=== PATIENT | female | born 1940 | race African-American/Black ===

== ENCOUNTER 2018-01-25 09:14 | Inpatient (IN) | payer OTHER, MEDICAID ==
[~2018-01-25] VITALS: Ht 162.6 cm; Wt 95.2 kg
[~2018-01-25 09:14] MED LIST: ACETTAB85 PO; ALBU18 IN; ALL100T PO; DOCU150L3 PO; FURO20TA3 PO; GLIP-115 PO; LABE100T PO; POTA8TAB2 PO; QUE100T PO; WARF2TAB55 PO; WARF5TAB71 PO
[2018-01-25] MEDS ORDERED: DEXTROSE 50% SYRINGE 50 ML IV ONE (09:26)
[2018-01-25] MEDS ORDERED: SODIUM CHLORIDE 0.9% 1,000 ML IV ONE ×2 (09:32)
[2018-01-25] MEDS ORDERED: DEXTROSE (50%) 50ML SYRG IV ONE (09:45)
[2018-01-25 10:19] LABS: Basophils # (auto) 0 uL; Basophils % (auto) 0.2 % (0.0-2.0); Eosinophils # (auto) 0 uL; Eosinophils % (auto) 0.1 % (0.0-7.0); Hematocrit 50.8 % (36.0-46.0); Hemoglobin 16.1 g/dL (12.2-16.2); Lymphocytes # (auto) 0.9 uL; Lymphocytes % (auto) 14.5 % (10.0-50.0); Mean Corpuscular Hgb Conc. 31.8 g/dL (32.0-36.0); Mean Corpuscular Volume 97.7 fL (80.0-100.0); Monocytes # (auto) 0.2 uL; Monocytes % (auto) 2.9 % (0.0-12.0); Neutrophils # (auto) 5.3 uL; Neutrophils % (auto) 82.3 % (37.0-80.0); Platelet Count (auto) 144 10^3/uL (140-450); White Blood Cell 6.4 10^3/uL (4.4-10.8)
[2018-01-25] MEDS ORDERED: DEXTROSE 10% 1,000 ML IV ONE ×2 (10:30→12:15)
[2018-01-25 10:42] LABS: INR 2.4 (0.9-1.15); Partial Thromboplastin Time 37.7 sec (22.64-33.71); Prothrombin Time 26.4 sec (9.37-12.3)
[2018-01-25 10:52] LABS: BUN/Creatinine Ratio 13.3; Bilirubin, Total 1.8 mg/dL (0.2-1.0); Calcium 10.4 mg/dL (8.5-10.1); Potassium 4.5 mmol/L (3.5-5.1); Total Protein 6.7 g/dL (6.4-8.2)
[2018-01-25 10:53] LABS: Albumin 3.5 g/dL (3.4-5.0)
[2018-01-25] MEDS: hydrALAZINE HCL 10 MG TAB PO SCH ×2 (12:00→18:26)
[2018-01-25] MEDS ORDERED: DEXTROSE (50%) 50ML SYRG IV PRN (12:00)
[2018-01-25] MEDS ORDERED: cefTRIAXone 1GM/10ml IVPUSH 10 ML IV ONE (12:00)
[2018-01-25] MEDS ORDERED: cloNIDine HCL 0.1 MG TAB PO PRN (12:00)
[2018-01-25] MEDS ORDERED: FUROSEMIDE 20 MG TAB PO ONE (12:15)
[2018-01-25] MEDS ORDERED: ACETAMINOPHEN/CODEINE#3 (300/30mg) TAB PO PRN (12:15)
[2018-01-25] MEDS ORDERED: DOCUSATE SOD 100 MG CAP PO PRN (12:15)
[2018-01-25] MEDS ORDERED: NITROGLYCERIN 0.4 MG SL TAB SL PRN (12:15)
[2018-01-25] MEDS ORDERED: HCTZ 25 MG TAB PO ONE (12:15)
[2018-01-25] MEDS ORDERED: TEMAZEPAM 15 MG CAP PO PRN (12:15)
[2018-01-25] MEDS ORDERED: METOPROLOL TARTRATE 25 MG TAB PO ONE (12:15)
[2018-01-25] MEDS ORDERED: MORPHINE SULFATE 8mg/ml INJ SDV IV PRN ×2 (12:15)
[2018-01-25] MEDS ORDERED: POTASSIUM CHLORIDE 8 MEQ TAB PO ONE (12:15)
[2018-01-25] MEDS ORDERED: ONDANSETRON HCL 4 MG/2 ML VIAL IV PRN (12:15)
[2018-01-25] MEDS ORDERED: ACETAMINOPHEN 325 MG TAB PO PRN (12:15)
[2018-01-25] MEDS ORDERED: HYDROcodone-ACET 5/325MG TAB PO PRN (12:15)
[2018-01-25] MEDS: FAMOTIDINE 20 MG TAB PO SCH (12:45)
[2018-01-25 13:14] LABS: Urine Bacteria NONE SEEN /hpf (None Seen); Urine Blood Negative /uL (Negative); Urine Hyaline Cast FEW /lpf (0 - 2); Urine Mucus FEW (None Seen); Urine Specific Gravity 1.021 (1.001-1.035); Urine WBC 1 /hpf (0 - 5)
[2018-01-25 13:50] VITALS: BP 153/117
[2018-01-25] MEDS: IPRATROPIUM BROM 0.5 MG/2.5ML INH SOL NEB SCH ×2 (14:44→21:26)
[2018-01-25] MEDS: ALBUTEROL SULF 2.5 MG/0.5ML(0.5%) NEB SOLN NEB SCH ×2 (14:44→21:26)
[2018-01-25 16:26] LABS: Folate (Folic Acid) > 24.00 ng/mL (5.38-24)
[2018-01-25] MEDS: ACCU-CHEK COMFORT CURVE STRIP VI SCH ×2 (17:00→21:47)
[2018-01-25] MEDS ORDERED: WARFARIN SODIUM 1 MG TAB PO ONE (17:00)
[2018-01-25] MEDS: InsuLIN REG 1unit/0.01ml Soln (100units/ml) SC SCH ×2 (17:00→21:48)
[2018-01-25] MEDS: METOPROLOL TARTRATE 25 MG TAB PO SCH (21:51)
[2018-01-25] MEDS: QUEtiapine FUMARATE 25 MG TAB PO SCH (21:52)
[2018-01-25] MEDS: PRAVASTATIN SODIUM 20 MG TAB PO SCH (21:52)
[2018-01-25] MEDS ORDERED: FAMOTIDINE 20 MG TAB PO SCH (22:00)
[2018-01-26] MEDS: hydrALAZINE HCL 10 MG TAB PO SCH ×4 (01:26→18:22)
[2018-01-26] MEDS: ALBUTEROL SULF 2.5 MG/0.5ML(0.5%) NEB SOLN NEB SCH ×3 (06:39→23:09)
[2018-01-26] MEDS: IPRATROPIUM BROM 0.5 MG/2.5ML INH SOL NEB SCH ×3 (06:39→23:09)
[2018-01-26] MEDS: ACCU-CHEK COMFORT CURVE STRIP VI SCH ×4 (08:02→22:06)
[2018-01-26 08:17] LABS: Basophils # (auto) 0 uL; Basophils % (auto) 0.6 % (0.0-2.0); Eosinophils # (auto) 0 uL; Eosinophils % (auto) 0.6 % (0.0-7.0); Hematocrit 47.4 % (36.0-46.0); Hemoglobin 15.4 g/dL (12.2-16.2); Lymphocytes # (auto) 1.2 uL; Lymphocytes % (auto) 15.8 % (10.0-50.0); Mean Corpuscular Hemoglobin 31.4 pg (28.0-32.0); Mean Corpuscular Hgb Conc. 32.5 g/dL (32.0-36.0); Mean Corpuscular Volume 96.7 fL (80.0-100.0); Monocytes # (auto) 0.7 uL; Monocytes % (auto) 9.3 % (0.0-12.0); Neutrophils # (auto) 5.7 uL; Neutrophils % (auto) 73.7 % (37.0-80.0); Nucleated Red Blood Cells % 0.2 %; Platelet Count (auto) 132 10^3/uL (140-450); Red Cell Distribution Width 19.1 % (11.8-14.3); White Blood Cell 7.7 10^3/uL (4.4-10.8)
[2018-01-26] MEDS: InsuLIN REG 1unit/0.01ml Soln (100units/ml) SC SCH ×4 (08:29→22:00)
[2018-01-26 08:31] LABS: Albumin 2.8 g/dL (3.4-5.0); Bilirubin, Total 1.2 mg/dL (0.2-1.0); Calcium 9.3 mg/dL (8.5-10.1); Total Protein 5.7 g/dL (6.4-8.2)
[2018-01-26 08:38] LABS: INR 2.36 (0.9-1.15); Partial Thromboplastin Time 36.6 sec (22.64-33.71); Prothrombin Time 25.9 sec (9.37-12.3)
[2018-01-26] MEDS: cefTRIAXone 1GM/10ml IVPUSH 10 ML IV SCH (09:11)
[2018-01-26 10:00] VITALS: BP 106/76
[2018-01-26] MEDS ORDERED: FUROSEMIDE 20 MG TAB PO SCH (10:00)
[2018-01-26] MEDS: METOPROLOL TARTRATE 25 MG TAB PO SCH ×2 (10:00→22:18)
[2018-01-26] MEDS ORDERED: POTASSIUM CHLORIDE 8 MEQ TAB PO SCH (10:00)
[2018-01-26] MEDS ORDERED: HCTZ 25 MG TAB PO SCH (10:00)
[2018-01-26] MEDS: MULTIPLE VITAMIN TAB PO SCH (10:19)
[2018-01-26] MEDS: FAMOTIDINE 20 MG TAB PO SCH (10:20)
[2018-01-26] MEDS ORDERED: WARFARIN SODIUM 5 MG TAB PO ONE (17:00)
[2018-01-26] MEDS: QUEtiapine FUMARATE 25 MG TAB PO SCH (22:18)
[2018-01-26] MEDS: PRAVASTATIN SODIUM 20 MG TAB PO SCH (22:18)
[2018-01-27 05:20] LABS: Basophils # (auto) 0 uL; Basophils % (auto) 0.6 % (0.0-2.0); Eosinophils # (auto) 0.1 uL; Eosinophils % (auto) 1.2 % (0.0-7.0); Hematocrit 45.3 % (36.0-46.0); Hemoglobin 14.5 g/dL (12.2-16.2); Lymphocytes # (auto) 0.9 uL; Lymphocytes % (auto) 14.9 % (10.0-50.0); Mean Corpuscular Hemoglobin 31.2 pg (28.0-32.0); Mean Corpuscular Volume 97.7 fL (80.0-100.0); Monocytes # (auto) 0.5 uL; Monocytes % (auto) 8.3 % (0.0-12.0); Neutrophils # (auto) 4.7 uL; Nucleated Red Blood Cells % 0.2 %; Platelet Count (auto) 121 10^3/uL (140-450); Red Blood Cells 4.64 10^6/uL (4.0-5.20); Red Cell Distribution Width 19.7 % (11.8-14.3); White Blood Cell 6.3 10^3/uL (4.4-10.8)
[2018-01-27 05:31] LABS: INR 1.79 (0.9-1.15); Prothrombin Time 19.6 sec (9.37-12.3)
[2018-01-27 05:53] LABS: Albumin 2.2 g/dL (3.4-5.0); BUN/Creatinine Ratio 16.5; Bilirubin, Total 0.9 mg/dL (0.2-1.0); Calcium 8.7 mg/dL (8.5-10.1); Potassium 4.4 mmol/L (3.5-5.1); Total Protein 4.7 g/dL (6.4-8.2)
[2018-01-27] MEDS: hydrALAZINE HCL 10 MG TAB PO SCH ×2 (06:00)
[2018-01-27] MEDS: IPRATROPIUM BROM 0.5 MG/2.5ML INH SOL NEB SCH ×2 (06:15→14:22)
[2018-01-27] MEDS: ALBUTEROL SULF 2.5 MG/0.5ML(0.5%) NEB SOLN NEB SCH ×2 (06:15→14:22)
[2018-01-27] MEDS: InsuLIN REG 1unit/0.01ml Soln (100units/ml) SC SCH ×3 (07:32→17:00)
[2018-01-27] MEDS: ACCU-CHEK COMFORT CURVE STRIP VI SCH ×3 (07:32→17:23)
[2018-01-27] MEDS ORDERED: MAGNESIUM SULFATE 1GM/100ML 100 ML IV PRN (07:45)
[2018-01-27] MEDS ORDERED: SODIUM CHLORIDE 0.9% 1,000 ML IV SCH (07:45)
[2018-01-27] MEDS: FAMOTIDINE 20 MG TAB PO SCH (09:06)
[2018-01-27] MEDS: MULTIPLE VITAMIN TAB PO SCH (09:06)
[2018-01-27] MEDS: cefTRIAXone 1GM/10ml IVPUSH 10 ML IV SCH (09:06)
[2018-01-27] MEDS ORDERED: AZITHROMYCIN 500MG/ 250ML 200 ML IV SCH (10:00)
[2018-01-27] MEDS ORDERED: SODIUM CHLORIDE 0.9% 500 ML IV ONE (10:15)
[2018-01-27] MEDS ORDERED: PROMETHAZINE HCL 25 MG/ML 1ML ONE (10:35)
[2018-01-27] MEDS ORDERED: PROMETHAZINE HCL 25 MG/ML 1ML IV PRN (10:45)
[2018-01-27] MEDS ORDERED: PROMETHAZINE HCL 25 MG/ML 1ML IV ONE (11:30)
[2018-01-27 16:58] VITALS: BP 119/66
[2018-01-27] MEDS ORDERED: WARFARIN SODIUM 5 MG TAB PO ONE (17:00)
== END 2018-01-27 19:36 | disposition short-term general hospital (02) | DRG 637 ==
LOC: ER 09:14 → EDBD 09:14 → TELE 09:15 → DOU IN ICU 01-27 17:15
PROVIDERS: ADMIT Internal Medicine; ATTEND Family Medicine
DX: E11.649 Type 2 diabetes mellitus with hypoglycemia without coma (principal); I50.43 Acute on chronic combined systolic (congestive) and diastolic (congestive) heart failure; N18.4 Chronic kidney disease, stage 4 (severe); G93.89 Other specified disorders of brain; E83.52 Hypercalcemia; I27.21 Secondary pulmonary arterial hypertension; J44.0 Chronic obstructive pulmonary disease with (acute) lower respiratory infection; I13.0 Hypertensive heart and chronic kidney disease with heart failure and stage 1 through stage 4 chronic kidney disease, or unspecified chronic kidney disease; I50.42 Chronic combined systolic (congestive) and diastolic (congestive) heart failure; E11.21 Type 2 diabetes mellitus with diabetic nephropathy; G30.9 Alzheimer's disease, unspecified; F01.50 Vascular dementia, unspecified severity, without behavioral disturbance, psychotic disturbance, mood disturbance, and anxiety; E11.22 Type 2 diabetes mellitus with diabetic chronic kidney disease; E78.5 Hyperlipidemia, unspecified; F02.80 Dementia in other diseases classified elsewhere, unspecified severity, without behavioral disturbance, psychotic disturbance, mood disturbance, and anxiety; F17.210 Nicotine dependence, cigarettes, uncomplicated; I67.2 Cerebral atherosclerosis; M10.9 Gout, unspecified; M19.90 Unspecified osteoarthritis, unspecified site; R29.6 Repeated falls; S09.90XA Unspecified injury of head, initial encounter; T45.515A Adverse effect of anticoagulants, initial encounter; X58.XXXA Exposure to other specified factors, initial encounter; Z82.3 Family history of stroke; Z82.49 Family history of ischemic heart disease and other diseases of the circulatory system; Z83.3 Family history of diabetes mellitus; Z86.73 Personal history of transient ischemic attack (TIA), and cerebral infarction without residual deficits; Z88.6 Allergy status to analgesic agent; Z79.899 Other long term (current) drug therapy; Z79.01 Long term (current) use of anticoagulants
CPT/HCPCS: 36415; 51702; 70450; 70486; 71045; 80053; 81001; 82607; 82746; 82962; 83036; 83605; 83735; 83880; 84443; 84484; 85025; 85610; 85730; 87040; 87081; 87086; 93886; 94640; 95819; 96374; 96375; 96376; J1815; J2405

== ENCOUNTER 2018-06-02 15:14 | Inpatient (IN) | payer OTHER, MEDICAID ==
[~2018-06-02] VITALS: Ht 162.6 cm; Wt 80.6 kg
[2018-06-02 16:48] LABS: Basophils # (auto) 0.1 uL; Basophils % (auto) 1.5 % (0.0-2.0); Eosinophils # (auto) 0 uL; Eosinophils % (auto) 0.6 % (0.0-7.0); Hematocrit 39.6 % (36.0-46.0); Hemoglobin 13.3 g/dL (12.2-16.2); Lymphocytes % (auto) 15.4 % (10.0-50.0); Mean Corpuscular Hemoglobin 31.8 pg (28.0-32.0); Mean Corpuscular Hgb Conc. 33.6 g/dL (32.0-36.0); Mean Corpuscular Volume 94.6 fL (80.0-100.0); Monocytes # (auto) 0.5 uL; Monocytes % (auto) 8.1 % (0.0-12.0); Neutrophils % (auto) 74.4 % (37.0-80.0); Nucleated Red Blood Cells % 0.2 %; Platelet Count (auto) 173 10^3/uL (140-450); Red Blood Cells 4.19 10^6/uL (4.0-5.20); Red Cell Distribution Width 15.2 % (11.8-14.3); White Blood Cell 6.8 10^3/uL (4.4-10.8)
[2018-06-02 17:03] LABS: Albumin 3.2 g/dL (3.4-5.0); Potassium 4.7 mmol/L (3.5-5.1)
[2018-06-02 17:06] LABS: BUN/Creatinine Ratio 14.6
[2018-06-02 17:17] LABS: Bilirubin, Total 1.4 mg/dL (0.2-1.0); Calcium 9.7 mg/dL (8.5-10.1); Total Protein 6.6 g/dL (6.4-8.2)
[2018-06-02] MEDS ORDERED: ALBUTEROL SULF 2.5 MG/0.5ML(0.5%) NEB SOLN NEB ONE (17:30)
[2018-06-02] MEDS ORDERED: cefTRIAXone 1GM/10ml IVPUSH 10 ML IV ONE (17:30)
[2018-06-02] MEDS ORDERED: IPRATROPIUM BROM 0.5 MG/2.5ML INH SOL NEB ONE (17:30)
[2018-06-02] MEDS ORDERED: FUROSEMIDE 20 MG/2 ML VIAL IV ONE (18:15)
[2018-06-02 19:21] LABS: Urine Bacteria NONE SEEN /hpf (None Seen); Urine Blood Negative /uL (Negative); Urine Mucus FEW (None Seen); Urine Specific Gravity 1.023 (1.001-1.035); Urine WBC 1 /hpf (0 - 5)
[2018-06-02] MEDS ORDERED: LORazepam 0.5 MG TAB PO PRN (20:15)
[2018-06-02] MEDS ORDERED: DEXTROSE (50%) 50ML SYRG IV PRN (20:15)
[2018-06-02] MEDS ORDERED: NITROGLYCERIN 0.4 MG SL TAB SL PRN ×2 (20:15)
[2018-06-02] MEDS ORDERED: PROMETHAZINE HCL 25 MG/ML 1ML IV PRN (20:15)
[2018-06-02] MEDS ORDERED: ACETAMINOPHEN 500 MG TAB PO PRN (20:15)
[2018-06-02] MEDS ORDERED: MORPHINE SULF INJ 2 MG/ML SYRINGE 1ML IV PRN ×3 (20:15)
[2018-06-02] MEDS ORDERED: LACTULOSE 20Gm/30ML SOLN PO PRN (20:15)
[2018-06-02] MEDS ORDERED: TEMAZEPAM 15 MG CAP PO PRN (20:15)
[2018-06-02] MEDS ORDERED: HYDROcodone-ACET 5/325MG TAB PO PRN (20:15)
[2018-06-02] MEDS: SODIUM CHLOR 0.9% PF (SALINE LOCK) 10ML VIAL/SYR IV SCH (20:40)
[2018-06-02 20:58] LABS: INR 1.01 (0.9-1.15); Partial Thromboplastin Time 28.1 sec (23.78-33.04); Prothrombin Time 10.8 sec (9.27-12.13)
[2018-06-02 21:22] VITALS: BP 159/106
[2018-06-02] MEDS: LABETALOL HCL 200 MG TAB PO SCH (21:24)
[2018-06-02 22:00] VITALS: BP 154/94
[2018-06-02] MEDS ORDERED: WARFARIN SODIUM 5 MG TAB PO ONE (22:00)
[2018-06-02] MEDS: InsuLIN REG 1unit/0.01ml Soln (100units/ml) SC SCH (22:00)
[2018-06-02 22:08] VITALS: BP 154/94
[2018-06-02] MEDS: ACCU-CHEK COMFORT CURVE STRIP VI SCH (22:22)
[2018-06-02] MEDS: ALBUTEROL SULF 2.5 MG/0.5ML(0.5%) NEB SOLN NEB PRN (22:40)
[2018-06-02] MEDS ORDERED: METO25TA5 PO (22:50)
[2018-06-02] MEDS ORDERED: PRAV20TA3 PO (22:50)
[2018-06-03] VITALS (7 sets, daily range): BP systolic 155–165; BP diastolic 83–121
[2018-06-03] MEDS: ALBUTEROL SULF 2.5 MG/0.5ML(0.5%) NEB SOLN NEB SCH ×3 (00:36→13:24)
[2018-06-03] MEDS: IPRATROPIUM BROM 0.5 MG/2.5ML INH SOL NEB SCH ×3 (00:37→13:24)
[2018-06-03] MEDS: glipiZIDE 5 MG TAB PO SCH ×2 (06:13→17:00)
[2018-06-03] MEDS: SODIUM CHLOR 0.9% PF (SALINE LOCK) 10ML VIAL/SYR IV SCH ×2 (06:13→14:00)
[2018-06-03] MEDS: InsuLIN REG 1unit/0.01ml Soln (100units/ml) SC SCH ×3 (06:13→17:00)
[2018-06-03] MEDS: ACCU-CHEK COMFORT CURVE STRIP VI SCH ×3 (06:14→17:00)
[2018-06-03 07:06] LABS: Basophils # (auto) 0.1 uL; Basophils % (auto) 0.9 % (0.0-2.0); Eosinophils # (auto) 0 uL; Eosinophils % (auto) 0.4 % (0.0-7.0); Hematocrit 42.2 % (36.0-46.0); Hemoglobin 13.7 g/dL (12.2-16.2); Lymphocytes # (auto) 1.4 uL; Lymphocytes % (auto) 18.8 % (10.0-50.0); Mean Corpuscular Hemoglobin 31.2 pg (28.0-32.0); Mean Corpuscular Hgb Conc. 32.5 g/dL (32.0-36.0); Mean Corpuscular Volume 96.1 fL (80.0-100.0); Monocytes # (auto) 0.6 uL; Monocytes % (auto) 8.4 % (0.0-12.0); Neutrophils # (auto) 5.2 uL; Neutrophils % (auto) 71.5 % (37.0-80.0); Nucleated Red Blood Cells % 0.1 %; Platelet Count (auto) 150 10^3/uL (140-450); Red Blood Cells 4.39 10^6/uL (4.0-5.20); White Blood Cell 7.3 10^3/uL (4.4-10.8)
[2018-06-03 07:43] LABS: Albumin 3.3 g/dL (3.4-5.0); BUN/Creatinine Ratio 13.6; Bilirubin, Total 1.2 mg/dL (0.2-1.0); Calcium 9.6 mg/dL (8.5-10.1); Potassium 4.2 mmol/L (3.5-5.1); Total Protein 6.7 g/dL (6.4-8.2)
[2018-06-03 08:31] LABS: INR 1.08 (0.9-1.15); Partial Thromboplastin Time 28.9 sec (23.78-33.04); Prothrombin Time 11.5 sec (9.27-12.13)
[2018-06-03] MEDS ORDERED: cefTRIAXone 1GM/10ml IVPUSH 10 ML IV SCH (09:00)
[2018-06-03] MEDS: LABETALOL HCL 200 MG TAB PO SCH (09:35)
[2018-06-03] MEDS ORDERED: POTASSIUM CHL 20 Meq TABLET PO SCH (10:00)
[2018-06-03] MEDS ORDERED: AZITHROMYCIN 500MG/ 250ML 250 ML IV SCH (10:00)
[2018-06-03] MEDS ORDERED: ENALAPRIL MALEATE 2.5 MG TAB PO SCH (10:00)
[2018-06-03] MEDS ORDERED: FUROSEMIDE 40 MG/4 ML VIAL IV SCH (10:00)
[2018-06-03] MEDS ORDERED: NITROGLYCERIN 0.2MG/HR TOPICAL PATCH TD SCH (10:00)
[2018-06-03] MEDS ORDERED: WARFARIN SODIUM 5 MG TAB PO SCH (10:00)
[2018-06-03] MEDS ORDERED: ALLOPURINOL 100 MG TAB PO SCH (10:00)
[2018-06-03] MEDS: ALBUTEROL SULF 2.5 MG/0.5ML(0.5%) NEB SOLN NEB PRN (10:47)
[2018-06-03] MEDS ORDERED: WARFARIN SODIUM 2.5 MG TAB PO ONE (17:00)
[2018-06-03] MEDS ORDERED: QUEtiapine FUMARATE 100 MG TAB PO SCH (18:00)
== END 2018-06-03 17:20 | disposition home or self-care (01) | DRG 291 ==
LOC: EDBD 15:14 → EDUNIT# 15:14 → ER 15:19 → TELE 15:20 → TELE-EAST 21:37
PROVIDERS: ADMIT Internal Medicine; ATTEND Family Medicine
DX: I13.0 Hypertensive heart and chronic kidney disease with heart failure and stage 1 through stage 4 chronic kidney disease, or unspecified chronic kidney disease (principal); J18.9 Pneumonia, unspecified organism; I50.33 Acute on chronic diastolic (congestive) heart failure; J44.1 Chronic obstructive pulmonary disease with (acute) exacerbation; J44.0 Chronic obstructive pulmonary disease with (acute) lower respiratory infection; D64.9 Anemia, unspecified; E11.21 Type 2 diabetes mellitus with diabetic nephropathy; E11.22 Type 2 diabetes mellitus with diabetic chronic kidney disease; E66.01 Morbid (severe) obesity due to excess calories; E78.5 Hyperlipidemia, unspecified; M19.90 Unspecified osteoarthritis, unspecified site; F41.9 Anxiety disorder, unspecified; I27.20 Pulmonary hypertension, unspecified; K59.00 Constipation, unspecified; M10.9 Gout, unspecified; N18.3 Chronic kidney disease, stage 3 (moderate); Z82.3 Family history of stroke; Z82.49 Family history of ischemic heart disease and other diseases of the circulatory system; Z83.3 Family history of diabetes mellitus; Z86.73 Personal history of transient ischemic attack (TIA), and cerebral infarction without residual deficits; Z87.891 Personal history of nicotine dependence; Z99.81 Dependence on supplemental oxygen; Z84.89 Family history of other specified conditions; Z88.6 Allergy status to analgesic agent; Z79.899 Other long term (current) drug therapy; Z68.30 Body mass index [BMI] 30.0-30.9, adult
CPT/HCPCS: 36415; 71045; 80053; 80061; 81001; 82550; 82962; 83036; 83880; 84443; 84484; 85025; 85610; 85730; 87040; 93306; 94640; 96374; 96375; 96376; A6257; J0696

== ENCOUNTER 2018-07-09 12:01 | Inpatient (IN) | payer OTHER, MEDICAID ==
[~2018-07-09] VITALS: Ht 162.6 cm; Wt 92.0 kg
[~2018-07-09 12:01] MED LIST changes: -ACETTAB85 PO; -LABE100T PO; +LABE100T4 PO; +METO25TA5 PO; +PRAV20TA3 PO; -WARF2TAB55 PO
[2018-07-09] MEDS ORDERED: SODIUM CHLORIDE 0.9% 1,000 ML IVB ONE (12:17)
[2018-07-09] MEDS ORDERED: DEXTROSE (50%) 50ML SYRG IV ONE (12:30)
[2018-07-09 12:54] LABS: Basophils # (auto) 0.1 uL; Basophils % (auto) 1.1 % (0.0-2.0); Eosinophils # (auto) 0.1 uL; Eosinophils % (auto) 0.9 % (0.0-7.0); Hematocrit 40.1 % (36.0-46.0); Hemoglobin 12.8 g/dL (12.2-16.2); Lymphocytes % (auto) 15.1 % (10.0-50.0); Mean Corpuscular Hemoglobin 30.6 pg (28.0-32.0); Mean Corpuscular Hgb Conc. 31.9 g/dL (32.0-36.0); Mean Corpuscular Volume 95.9 fL (80.0-100.0); Monocytes # (auto) 0.4 uL; Monocytes % (auto) 5.8 % (0.0-12.0); Neutrophils # (auto) 5.1 uL; Neutrophils % (auto) 77.1 % (37.0-80.0); Nucleated Red Blood Cells % 0.1 %; Platelet Count (auto) 176 10^3/uL (140-450); Red Blood Cells 4.18 10^6/uL (4.0-5.20); Red Cell Distribution Width 16.4 % (11.8-14.3); White Blood Cell 6.6 10^3/uL (4.4-10.8)
[2018-07-09 13:12] LABS: INR 1.02 (0.9-1.15); Partial Thromboplastin Time 29.7 sec (23.78-33.04); Prothrombin Time 10.9 sec (9.27-12.13)
[2018-07-09 13:21] LABS: Albumin 3.5 g/dL (3.4-5.0); BUN/Creatinine Ratio 15.5; Bilirubin, Total 1.2 mg/dL (0.2-1.0); Calcium 9.6 mg/dL (8.5-10.1); Magnesium 2.4 mg/dL (1.6-2.6); Potassium 4.4 mmol/L (3.5-5.1); Total Protein 6.7 g/dL (6.4-8.2)
[2018-07-09 14:46] LABS: Urine Bacteria NONE SEEN /hpf (None Seen); Urine Blood Negative /uL (Negative); Urine Specific Gravity 1.008 (1.001-1.035); Urine WBC <1 /hpf (0 - 5)
[2018-07-09] MEDS ORDERED: IPRATROPIUM BROM 0.5 MG/2.5ML INH SOL NEB ONE (17:30)
[2018-07-09] MEDS ORDERED: ALBUTEROL SULF 2.5 MG/0.5ML(0.5%) NEB SOLN NEB ONE (17:30)
[2018-07-09] MEDS ORDERED: FUROSEMIDE 40 MG/4 ML VIAL IV ONE (18:15)
[2018-07-09] MEDS ORDERED: POTASSIUM CHL 10 Meq TABLET PO ONE (18:15)
[2018-07-09] MEDS ORDERED: ONDANSETRON HCL 4 MG/2 ML VIAL IV PRN (18:30)
[2018-07-09] MEDS ORDERED: cloNIDine HCL 0.1 MG TAB PO PRN (18:30)
[2018-07-09] MEDS ORDERED: ACETAMINOPHEN 325 MG TAB PO PRN (18:30)
[2018-07-09] MEDS ORDERED: MORPHINE SULFATE 4 MG/ML SYR/VIAL IV PRN ×2 (18:30)
[2018-07-09] MEDS ORDERED: LORazepam 0.5 MG TAB PO PRN (18:30)
[2018-07-09] MEDS ORDERED: DEXTROSE (50%) 50ML SYRG IV PRN (18:30)
[2018-07-09] MEDS ORDERED: ALUM & MAG HYDROX-SIMETH LIQ(MAALOX) 30 ML PO ONE (18:30)
[2018-07-09] MEDS ORDERED: NITROGLYCERIN 0.4 MG SL TAB SL PRN ×2 (18:30)
[2018-07-09] MEDS ORDERED: ZOLPIDEM TARTRATE 5 MG TAB PO PRN (18:30)
[2018-07-09 19:39] VITALS: BP 159/112
[2018-07-09 20:00] VITALS: BP 165/101
[2018-07-09] MEDS: SODIUM CHLOR 0.9% PF (SALINE LOCK) 10ML VIAL/SYR IV SCH (21:57)
[2018-07-09 22:00] VITALS: BP 165/101
[2018-07-09] MEDS: InsuLIN REG 1unit/0.01ml Soln (100units/ml) SC SCH (22:00)
[2018-07-09] MEDS ORDERED: PRAVASTATIN SODIUM 20 MG TAB PO SCH (22:00)
[2018-07-09] MEDS ORDERED: QUEtiapine FUMARATE 100 MG TAB PO SCH (22:00)
[2018-07-09] MEDS: LABETALOL HCL 200 MG TAB PO SCH (22:02)
[2018-07-09] MEDS: ENALAPRIL MALEATE 2.5 MG TAB PO SCH (22:03)
[2018-07-09] MEDS: ACCU-CHEK COMFORT CURVE STRIP VI SCH (22:04)
[2018-07-09] MEDS: ALBUTEROL SULF 2.5 MG/0.5ML(0.5%) NEB SOLN NEB SCH (23:24)
[2018-07-09] MEDS: IPRATROPIUM BROM 0.5 MG/2.5ML INH SOL NEB SCH (23:24)
[2018-07-10] MEDS ORDERED: GLIP10TA59 PO (03:57)
[2018-07-10] MEDS ORDERED: HYDR-4296 PO (03:59)
[2018-07-10] MEDS ORDERED: QUET200T44 PO (04:03)
[2018-07-10] MEDS ORDERED: CIPR-217 PO (04:05)
[2018-07-10 05:23] VITALS: BP 123/70
[2018-07-10] MEDS: SODIUM CHLOR 0.9% PF (SALINE LOCK) 10ML VIAL/SYR IV SCH ×2 (06:00→16:03)
[2018-07-10] MEDS ORDERED: glipiZIDE 5 MG TAB PO SCH (07:00)
[2018-07-10] MEDS: InsuLIN REG 1unit/0.01ml Soln (100units/ml) SC SCH ×3 (07:00→17:00)
[2018-07-10] MEDS: ACCU-CHEK COMFORT CURVE STRIP VI SCH ×3 (07:08→17:46)
[2018-07-10] MEDS: IPRATROPIUM BROM 0.5 MG/2.5ML INH SOL NEB SCH ×3 (07:15→18:46)
[2018-07-10] MEDS: ALBUTEROL SULF 2.5 MG/0.5ML(0.5%) NEB SOLN NEB SCH ×3 (07:15→18:45)
[2018-07-10 09:00] VITALS: BP 118/79
[2018-07-10] MEDS: LABETALOL HCL 200 MG TAB PO SCH (09:22)
[2018-07-10] MEDS: ENALAPRIL MALEATE 2.5 MG TAB PO SCH (09:23)
[2018-07-10] MEDS ORDERED: ALLOPURINOL 100 MG TAB PO SCH (10:00)
[2018-07-10] MEDS ORDERED: FUROSEMIDE 40 MG/4 ML VIAL IV SCH (10:00)
[2018-07-10] MEDS ORDERED: CLOPIDOGREL BISULFATE 75 MG TAB PO SCH (10:00)
[2018-07-10] MEDS ORDERED: DOCUSATE SOD 100 MG CAP PO SCH (10:00)
[2018-07-10] MEDS ORDERED: POTASSIUM CHL 10 Meq TABLET PO SCH (10:00)
[2018-07-10 12:20] LABS: BUN/Creatinine Ratio 15.3; Bilirubin, Total 1.2 mg/dL (0.2-1.0); Calcium 9.7 mg/dL (8.5-10.1); Magnesium 2.3 mg/dL (1.6-2.6); Potassium 4.4 mmol/L (3.5-5.1); Total Protein 6.3 g/dL (6.4-8.2)
[2018-07-10 13:00] VITALS: BP 124/79
[2018-07-10 13:25] LABS: Basophils # (auto) 0 uL; Basophils % (auto) 0.3 % (0.0-2.0); Eosinophils # (auto) 0.1 uL; Hemoglobin 12.1 g/dL (12.2-16.2); Lymphocytes # (auto) 0.8 uL; Lymphocytes % (auto) 11.5 % (10.0-50.0); Mean Corpuscular Hemoglobin 30.9 pg (28.0-32.0); Mean Corpuscular Hgb Conc. 31.9 g/dL (32.0-36.0); Mean Corpuscular Volume 97.1 fL (80.0-100.0); Monocytes # (auto) 0.4 uL; Monocytes % (auto) 6.3 % (0.0-12.0); Neutrophils # (auto) 5.6 uL; Neutrophils % (auto) 80.9 % (37.0-80.0); Nucleated Red Blood Cells % 0.1 %; Platelet Count (auto) 164 10^3/uL (140-450); Red Blood Cells 3.91 10^6/uL (4.0-5.20); Red Cell Distribution Width 16.8 % (11.8-14.3); White Blood Cell 6.9 10^3/uL (4.4-10.8)
[2018-07-10 14:32] VITALS: BP 121/76
[2018-07-10 17:00] VITALS: BP 124/84
== END 2018-07-10 19:21 | disposition short-term general hospital (02) | DRG 291 ==
LOC: EDBD 12:01 → ER 12:01 → TELE 12:02 → TELE-CENTR 19:50
PROVIDERS: ADMIT Internal Medicine; ATTEND Internal Medicine
DX: I13.0 Hypertensive heart and chronic kidney disease with heart failure and stage 1 through stage 4 chronic kidney disease, or unspecified chronic kidney disease (principal); I50.43 Acute on chronic combined systolic (congestive) and diastolic (congestive) heart failure; N18.3 Chronic kidney disease, stage 3 (moderate); F41.9 Anxiety disorder, unspecified; E11.21 Type 2 diabetes mellitus with diabetic nephropathy; I25.110 Atherosclerotic heart disease of native coronary artery with unstable angina pectoris; E11.22 Type 2 diabetes mellitus with diabetic chronic kidney disease; E11.649 Type 2 diabetes mellitus with hypoglycemia without coma; E78.5 Hyperlipidemia, unspecified; I27.20 Pulmonary hypertension, unspecified; J44.9 Chronic obstructive pulmonary disease, unspecified; M10.9 Gout, unspecified; M19.90 Unspecified osteoarthritis, unspecified site; Z86.73 Personal history of transient ischemic attack (TIA), and cerebral infarction without residual deficits; Z87.891 Personal history of nicotine dependence; Z88.6 Allergy status to analgesic agent; Z79.01 Long term (current) use of anticoagulants
CPT/HCPCS: 36415; 71045; 80053; 80061; 81001; 82962; 83036; 83735; 83880; 84484; 85025; 85610; 85730; 87081; 93005; 94640; 94761; 96361; 96374

== ENCOUNTER 2018-08-06 09:43 | Emergency (ER) | payer OTHER, MEDICAID ==
[~2018-08-06] VITALS: Ht 162.6 cm; Wt 70.3 kg
[~2018-08-06 09:43] MED LIST changes: +CIPR-217 PO; +GLIP10TA59 PO; +HYDR-4296 PO; -QUE100T PO; +QUET200T44 PO
[2018-08-06 12:04] LABS: Basophils # (auto) 0 uL; Basophils % (auto) 0.3 % (0.0-2.0); Eosinophils # (auto) 0.1 uL; Eosinophils % (auto) 1.4 % (0.0-7.0); Hematocrit 40.3 % (36.0-46.0); Hemoglobin 12.6 g/dL (12.2-16.2); Lymphocytes # (auto) 1.2 uL; Lymphocytes % (auto) 15.5 % (10.0-50.0); Mean Corpuscular Hemoglobin 29.9 pg (28.0-32.0); Mean Corpuscular Hgb Conc. 31.3 g/dL (32.0-36.0); Mean Corpuscular Volume 95.5 fL (80.0-100.0); Monocytes # (auto) 0.4 uL; Neutrophils # (auto) 5.8 uL; Neutrophils % (auto) 76.8 % (37.0-80.0); Nucleated Red Blood Cells % 0.1 %; Platelet Count (auto) 183 10^3/uL (140-450); Red Blood Cells 4.22 10^6/uL (4.0-5.20); Red Cell Distribution Width 15.8 % (11.8-14.3); White Blood Cell 7.5 10^3/uL (4.4-10.8)
[2018-08-06 12:11] LABS: Urine Bacteria NONE SEEN /hpf (None Seen); Urine Blood Negative /uL (Negative); Urine Hyaline Cast FEW /lpf (0 - 2); Urine Specific Gravity 1.019 (1.001-1.035); Urine WBC <1 /hpf (0 - 5)
[2018-08-06] MEDS ORDERED: SODIUM CHLORIDE 0.9% 1,000 ML IV ONE (12:18)
[2018-08-06 12:26] LABS: Albumin 3.3 g/dL (3.4-5.0); BUN/Creatinine Ratio 13.1; Calcium 9.7 mg/dL (8.5-10.1); Magnesium 2.4 mg/dL (1.6-2.6); Potassium 3.8 mmol/L (3.5-5.1)
[2018-08-06 12:30] LABS: Bilirubin, Total 0.7 mg/dL (0.2-1.0); Total Protein 7.1 g/dL (6.4-8.2)
[2018-08-06 13:04] VITALS: BP 157/95
[2018-08-06 13:08] LABS: INR 0.97 (0.9-1.15); Partial Thromboplastin Time 28.8 sec (23.78-33.04); Prothrombin Time 10.4 sec (9.27-12.13)
== END 2018-08-06 15:42 | disposition home or self-care (01) ==
LOC: ER 09:43 → EDBD 09:43 → ER 15:42
DX: J44.1 Chronic obstructive pulmonary disease with (acute) exacerbation (principal); R09.89 Other specified symptoms and signs involving the circulatory and respiratory systems; E11.21 Type 2 diabetes mellitus with diabetic nephropathy; E46 Unspecified protein-calorie malnutrition; M19.90 Unspecified osteoarthritis, unspecified site; E78.5 Hyperlipidemia, unspecified; I10 Essential (primary) hypertension; M10.9 Gout, unspecified; Z87.891 Personal history of nicotine dependence; Z68.26 Body mass index [BMI] 26.0-26.9, adult
CPT/HCPCS: 36415; 71045; 80053; 81001; 83735; 83880; 84443; 84484; 85025; 85610; 85730; 93005; 94761